=== PATIENT | male | born 1935 | race Caucasian/White ===

== ENCOUNTER → 2017-09-11 | Outpatient (CLI) | payer OTHER ==
[~2017-09-11] MED LIST: DUTA0.5C PO; MULTTAB58 PO; SILODOSIN PO
[2017-09-11 12:51] LABS: BLOOD UREA NITROGEN 19 mg/dl (7-18); BUN/CREATININE RATIO 20.9 (10-20); CARBON DIOXIDE 28 mmol/L (21-32); CHLORIDE 105 mmol/L (98-107); CREATININE 0.92 mg/dl (0.60-1.40); GLUCOSE 133 mg/dl (70-99); POTASSIUM 4.8 mmol/L (3.5-5.1); SODIUM 138 mmol/L (136-145)
== END | disposition home or self-care (01) ==
LOC: C.LABPVFM 08:47
PROVIDERS: ATTEND Nurse Practitioner Family
DX: Z01.818 Encounter for other preprocedural examination (principal)

== ENCOUNTER 2024-04-06 11:38 | Inpatient (IN) ==
[2024-04-06] MEDS: methylPREDNISolone 125 MG/2 ML VIAL IV STA (12:10)
[2024-04-06 12:14] LABS: Hematocrit (blood only) 39.5 % (42.0-52.0); Hemoglobin 13.9 g/dl (14.0-18.0); Mean Corpuscular Hemoglobin 31.2 pg (25.0-34.0); Mean Corpuscular Hgb Conc 35.2 g/dL (32.0-36.0); Mean Corpuscular Volume 88.6 fL (80.0-100.0); Mean Platelet Volume 10.4 fL (9.4-12.4); Platelet Count 166 K/uL (130-400); RDW Coefficient of Variation 13.7 % (11.5-14.5); RDW Standard Deviation 44.5 fL (36.4-46.3); Red Blood Count 4.46 M/uL (4.70-6.10); White Blood Count 6.91 K/ul (4.8-10.8)
[2024-04-06] MEDS: LEVALBUTEROL 1.25 MG/3 ML NEB NEB STA (12:16)
[2024-04-06] MEDS: SODIUM CHLORIDE 0.9% 500 ML IV ONE ×2 (12:19→13:20)
[2024-04-06 12:33] LABS: Albumin Globulin Ratio 1.2 (0.9-2); Albumin Level 3.7 gm/dl (3.4-5.0); BUN Creatinine Ratio 22.7 (10-20); Bilirubin,Total 0.4 mg/dl (0.2-1.0); Calcium 8.7 mg/dl (8.6-10.3); Creatinine Clr Calc Pharmacy 31.8 ml/min; Est GFR (African American) 40.8 ml/min; Est GFR (Non-African American) 35.2 ml/min; Globulin 3.1 gm/dl (2.5-4.0); Magnesium 2.2 mg/dl (1.7-2.4); Potassium 4.2 mmol/L (3.5-5.1); Total Protein 6.8 gm/dl (6.0-8.3)
--- NOTE | 2024-04-06 12:34 | XRay Report ---
XR chest 1V portable CLINICAL HISTORY: Dyspnea COMPARISON STUDY: Chest radiograph January 12, 2024. Chest CT January 19, 2024. FINDINGS: No pneumothorax or pleural effusion is present. 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 No consolidation is present. Cardiomediastinal silhouette is stable. There is underlying emphyse ma. IMPRESSION: 1. No acute cardiopulmonary findings. 2. Interstitial thickening, likely chronic. 3. Emphysema. ACT 112: Negative or not required by law. Electronically signed by: Eric Velasco M.D. 04/06/2024 12:33 PM
--- NOTE | 2024-04-06 12:34 | Emergency Department Note ---
Impression & Plan Atrial fibrillation with RVR, Dyspnea on exertion, Elevated troponin, KE (acute kidney injury) ED Provider Note NAME: AV GALVEZ AGE: 88 SEX: M : 1935 ARRIVES VIA: Ambulance INFORMANT: Patient, ED PROVIDER(S): Yann Macias MD CHIEF COMPLAINT: Shortness of breath, A-fib with RVR MEDICAL DECISION MAKING: Patient presents due to concern for shortness of breath and was noted to be in A-fib with RVR. IV was established and blood work was obtained. Patient was ordered methylprednisolone as well as a Xopenex treatment. Bedside ultrasound was performed which I believe showed small pericardial effusion no evidence of tamponade good EF and IVC showed respiratory variability that the patient would benefit from IV fluids. Patient did have a diltiazem drip ordered initially withheld any bolus. Patient did receive 500 of IV fluids and has had some mild improvement in his tachycardia. Do believe the patient would benefit from further rate control as the patient has a normal white count H&H and platelet count and there is no evidence of left shift. The patient was ordered additional Cardizem bolus of 10 mg. Patient was ordered IV heparin. Patient's hemoglobin is virtually normal at 13.9. The patient's kidney function with a creatinine 1.72 which is a change from prior but may be due to patient's A-fib with RVR and likely diastolic dysfunction. Initial troponin of 244. BNP is elevated at 664. TSH is low but free T4 is normal. The patient's bio fire is negative. Patient did have improvement in tachycardia as well as blood pressure. I did speak with the on-call hospitalist service Tomás Velasco PA-C and Dr. Marino. Critical Care: I have personally spent 55 minutes of critical care time in direct management of this patient. This includes bedside care, interpretation of diagnostic studies, and testing, discussion with consultants, patient, and family members, and other require inpatient management activities. This 55 minutes is in excess of all separately billable procedures. Procedures: Limited Point of Care Cardiac Ultrasound performed by me: Indication: A-fib with RVR Findings: Limited echocardiography revealed pericardial effusion without evidence of tamponade. Endpoint septal separation was normal no evidence of obvious heart failure. HR 130s and irregular. Additional findings: IVC with respiratory variability no evidence of plethora. Impression: A-fib RVR with preserved EF Discussion w/ other healthcare providers: Tomás Velasco PA-C and Dr. Marino inpatient medicine service Prior /Outside records reviewed: None Differential diagnosis: Reactive airway disease, pneumonia, pneumothorax, COPD, CHF, ACS, pulmonary embolism, musculoskeletal, GERD as well as other pathologies were considered. Diagnostics, as interpreted by me: ECG: A-fib with RVR, rate 147, left axis deviation, wide QRS, right bundle branch block pattern. A-fib is new from comparison April 14, 2013. A-fib has replaced sinus rhythm. Cardiac monitoring: An order was placed for continuous cardiac monitoring. The monitor shows a rate of 135 with irregularly irregular and tachycardic rhythm. Patient was placed on pulse oximetry Medical decision rules: None Imaging studies: I informally interpreted the patient's chest x-ray does not show evidence of obvious pneumonia or pneumothorax with formal report to follow. HPI: Patient presents from clinic due to concern for increasing shortness of breath new onset A-fib and hypoxia. Patient states that his symptoms began on Thursday. The patient has felt a bit more weak but states that his shortness of breath has been ongoing and gotten progressively worse it is fairly constant. Patient denies any chest pains. No falls or trauma. Patient denies any fevers or chills. Former smoker states that he has no known history of COPD. Patient reportedly was in clinic today for an appointment for his initial complaints was noted to be in A-fib and hypoxic to 89%. The patient was placed on supplemental nasal cannula oxygen. I did receive the medical command call and decision was made to give the patient IV Cardizem 15 mg as the patient was reportedly afebrile with a stable blood pressure. Patient denies any cough or fever no abdominal pain. Patient denies any leg swelling PAST MEDICAL HISTORY: See Below PAST SURGICAL HISTORY: See Below SOCIAL HISTORY: See Below HOME MEDICATIONS: See Below ALLERGIES: See Below VITALS: See Below PHYSICAL EXAMINATION: GENERAL: NAD, non-toxic. Wearing glasses. EYE EXAM: Normal conjunctiva. PERRL, no anisocoria and EOM's grossly intact w/o pain. OROPHARYNX: Moist mucus membranes, grossly normal dentition. NECK: Trachea midline, no stridor. LUNGS: Scant wheezes noted without rhonchi or crackles. Normal chest wall mechanics. HEART: Tachycardic and irregular irregular, no MRG. ABDOMEN: Abdomen soft, non-tender, no masses, no rebound or guarding. BACK: No CVA TTP. SKIN: No rashes and no bruising. UPPER EXTREMITIES: Upper extremities are grossly normal. LOWER EXTREMITIES: Grossly normal, no edema or erythema. NEURO EXAM: A&O x3, cranial nerves II-XII grossly intact, normal speech, moves all 4 extremities. Past Med/Surg History Problem List (Updated 04/06/24 @ 17:43 by Yann Macias MD) KE (acute kidney injury) (Acute) Elevated troponin (Acute) Generalized weakness Falls Atrial fibrillation with RVR (Acute) Fatigue Dyspnea on exertion (Acute) Benign prostatic hyperplasia (BPH) with straining on urination Gross hematuria Elevated blood pressure reading without diagnosis of hypertension Eczema (Acute) Surgical History H/O prostatectomy H/O hand surgery History of hip replacement Family History Grandfather Myocardial infarction Denies family history of Ovarian cancer Prostate cancer Diabetes Breast cancer Colorectal cancer Hypertension Social History Smoking Status: Former smoker Tobacco Type: Cigars Cigarettes Per Day: smoked 20-30 years; Second Hand Exposure: No; Do You Dip or Chew Tobacco: No; Hx Alcohol Use: No Hx Substance Use: No Preferred Language: Albanian Communication Ability: Effective Hearing Ability: Normal Installation Manager Required: No marital status: Current Living Situation: Spouse 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 How many Children do You have: 3 Feels Safe at Home: Yes Childhood Exposure to Second-Hand Smoke: Yes Diet: regular caffeine: Yes (coffee) Dental Care, Regularly: No Physical Activity Frequency: Daily Seatbelt Use: sometimes Sunscreen Use: No Allergies Allergies Allergy/AdvReac Type Severity Reaction Status Date / Time latex Allergy Intermediate BLISTERS Verified 04/06/24 10:49 Home Meds Home Medications Medication Instructions Recorded Confirmed multivitamin 1 tab PO HS 09/28/20 04/06/24 dutasteride 0.5 mg capsule 0.5 mg PO HS 04/06/24 04/06/24 Results & Data (ED) Vital Signs Vital Signs - 24 hr 04/06/24 11:46 04/06/24 11:46 04/06/24 12:28 Temperature 37.8 C H Temperature Source Oral Pulse Rate 124 H 128 H Pulse Rate [Left Apical] Respiratory Rate 30 H Respiratory Effort / Characteristics Spontaneous Short of Breath Respiratory Depth Normal Respiratory Pattern Regular Blood Pressure 112/73 Blood Pressure [Right Arm] Blood Pressure Mean 86 Blood Pressure Mean [Right Arm] Pulse Oximetry 94 94 Oxygen Delivery Method Room Air Room Air Oxygen Flow Rate 0 Sepsis Recent Fever Within 48 Hours Yes Sepsis New/Unexplained Change in Mental Status N/A Sepsis Action Taken by Nursing Physician Notified 04/06/24 12:30 04/06/24 13:03 04/06/24 13:19 Temperature Temperature Source Pulse Rate 127 H 150 H Pulse Rate [Left Apical] 139 H Respiratory Rate 25 H 26 H Respiratory Effort / Characteristics Respiratory Depth Respiratory Pattern Blood Pressure 109/84 96/67 L Blood Pressure [Right Arm] 115/83 Blood Pressure Mean 92 76 Blood Pressure Mean [Right Arm] 93 Pulse Oximetry 99 94 Oxygen Delivery Method Room Air Room Air Oxygen Flow Rate Sepsis Recent Fever Within 48 Hours Sepsis New/Unexplained Change in Mental Status Sepsis Action Taken by Nursing 04/06/24 13:45 04/06/24 14:00 04/06/24 14:09 Temperature Temperature Source Pulse Rate 135 H 115 H Pulse Rate [Left Apical] Respiratory Rate 23 26 H Respiratory Effort / Characteristics Respiratory Depth Respiratory Pattern Blood Pressure 112/69 Blood Pressure [Right Arm] Blood Pressure Mean 88 Blood Pressure Mean [Right Arm] Pulse Oximetry 95 94 Oxygen Delivery Method Room Air Room Air Oxygen Flow Rate Sepsis Recent Fever Within 48 Hours Sepsis New/Unexplained Change in Mental Status Sepsis Action Taken by Nursing 04/06/24 14:30 Temperature Temperature Source Pulse Rate Pulse Rate [Left Apical] Respiratory Rate Respiratory Effort / Characteristics Respiratory Depth Respiratory Pattern Blood Pressure Blood Pressure [Right Arm] 115/79 Blood Pressure Mean Blood Pressure Mean [Right Arm] 91 Pulse Oximetry Oxygen Delivery Method Oxygen Flow Rate Sepsis Recent Fever Within 48 Hours Sepsis New/Unexplained Change in Mental Status Sepsis Action Taken by Snf Medications Current Medication List: was personally reviewed by me Laboratory Data Attestation: I reviewed the patient's lab results. 04/06/24 11:48 04/06/24 11:48 Lab Results 04/06/24 04/06/24 Range/Units 11:48 11:58 WBC 6.91 (4.8-10.8) K/ul RBC 4.46 L (4.70-6.10) M/uL Hgb 13.9 L (14.0-18.0) g/dl Hct 39.5 L (42.0-52.0) % MCV 88.6 (80.0-100.0) fL MCH 31.2 (25.0-34.0) pg MCHC 35.2 (32.0-36.0) g/dL RDW Std Deviation 44.5 (36.4-46.3) fL RDW Coeff of Luis 13.7 (11.5-14.5) % Plt Count 166 (130-400) K/uL MPV 10.4 (9.4-12.4) fL Immature Gran % (Auto) 0.4 % Neut % (Auto) 79.2 % Lymph % (Auto) 15.9 % [place] % (Auto) 3.9 % Eos % (Auto) 0.3 % Baso % (Auto) 0.3 % Neut # (Auto) 5.47 (1.40-6.50) K/uL Lymph # (Auto) 1.10 L (1.20-3.40) K/uL [place] # (Auto) 0.27 (0.11-0.59) K/uL Eos # (Auto) 0.02 (0.00-0.50) K/uL Baso # (Auto) 0.02 (0.00-0.20) K/uL Immature Gran # (Auto) 0.03 (0.01-0.20) K/uL RBC Morphology Unremarkable PT 11.0 (9.0-12.0) Seconds INR 1.0 (0.9-1.1) APTT 28 (21-31) Seconds PTT Ratio 1.0 Sodium 135 L (136-145) mmol/L Potassium 4.2 (3.5-5.1) mmol/L Chloride 105 (98-107) mmol/L Carbon Dioxide 21 (21-32) mmol/L Anion Gap 9 (3-11) BUN 39 H (6-23) mg/dl Creatinine 1.72 H (0.6-1.4) mg/dl Est Cr Clr Drug Dosing 31.8 ml/min Est GFR ( Amer) 40.8 ml/min Est GFR (Non-Af Amer) 35.2 ml/min BUN/Creatinine Ratio 22.7 H (10-20) Glucose 201 H (70-99(Fasting)) mg/dl Lactate 1.9 (0.4-2.0) mmol/L Calcium 8.7 (8.6-10.3) mg/dl Magnesium 2.2 (1.7-2.4) mg/dl Total Bilirubin 0.4 (0.2-1.0) mg/dl AST 56 H (13-39) U/L ALT 47 (7-52) U/L Alkaline Phosphatase 82 (34-104) U/L Troponin I High Sens 244.7 H* (0-20) pg/ml B-Natriuretic Peptide 664 H (0-100) pg/ml Total Protein 6.8 (6.0-8.3) gm/dl Albumin 3.7 (3.4-5.0) gm/dl Globulin 3.1 (2.5-4.0) gm/dl Albumin/Globulin Ratio 1.2 (0.9-2) Adenovirus (PCR) Not Detected (NotDetected) Anaplasma Smear See Comment Babesia Smear See Comment B. pertussis DNA (PCR) Not Detected (NotDetected) B.parapertussis DNA PCR Not Detected (NotDetected) C. pneumoniae DNA (PCR) Not Detected (NotDetected) Coronavirus OC43 (PCR) Not Detected (NotDetected) Coronavirus HKU1 (PCR) Not Detected (NotDetected) Coronavirus 229E (PCR) Not Detected (NotDetected) SARS-CoV-2 (PCR) Not Detected (NotDetected) Coronavirus NL63 (PCR) Not Detected (NotDetected) Human Metapneumovir PCR Not Detected (NotDetected) Influenza Type A (PCR) Not Detected (NotDetected) Influenza Type B (PCR) Not Detected (NotDetected) M. pneumoniae (PCR) Not Detected (NotDetected) Parainfluenza 1 (PCR) Not Detected (NotDetected) Parainfluenza 2 (PCR) Not Detected (NotDetected) Parainfluenza 3 (PCR) Not Detected (NotDetected) Parainfluenza 4 (PCR) Not Detected (NotDetected) RSV (PCR) Not Detected (NotDetected) Entero/Rhino (PCR) Not Detected (NotDetected) Administered Medications Diltiazem HCl 125 mg/ Dextrose 125 mls @ 10 mls/hr IV .[id number] JULIAN; Protocol Stop: 05/06/24 12:29 Last Titration: 04/06/24 15:17 Dose: 10 mg/hr, 10 mls/hr Documented By: CELINE Co-signed By: MARCUS Titration: 04/06/24 13:40 Dose: 5 mg/hr, 5 mls/hr Documented By: CELINE Co-signed By: TIM Admin: 04/06/24 12:37 Dose: 5 mg/hr, 5 mls/hr Documented By: CELINE Co-signed By: TIM Heparin Sodium/Dextrose (Heparin Sodium/Dextrose) 25,000 units in 500 mls @ 19 mls/hr IV .Q24H [facility]; Protocol Stop: 05/06/24 12:59 Last Titration: 04/06/24 13:54 Dose: 950 units/hr, 19 mls/hr Documented By: CELINE Co-signed By: TIM Titration: 04/06/24 13:28 Dose: 0 units/hr, 0 mls/hr Documented By: CELINE Co-signed By: TIM Admin: 04/06/24 13:24 Dose: 950 units/hr, 19 mls/hr Documented By: CELINE Co-signed By: TIM Lactated Ringer's (Lr) 1,000 mls @ 80 mls/hr IV .[id number] [facility] Stop: 04/07/24 03:29 Last Admin: 04/06/24 15:11 Dose: 80 mls/hr Documented By: CELINE Discontinued Medications Diltiazem HCl (Diltiazem Hcl 5 Mg/Ml 5 Ml Vial) 15 mg IV NOW STA Stop: 04/06/24 13:04 Last Admin: 04/06/24 15:11 Dose: Not Given Documented By: CELINE Diltiazem HCl (Diltiazem Hcl 5 Mg/Ml 5 Ml Vial) 10 mg IV NOW STA Stop: 04/06/24 13:07 Last Admin: 04/06/24 13:24 Dose: 10 mg Documented By: CELINE Co-signed By: TIM Heparin Sodium/Dextrose (Heparin Iv Adult Wt-Based Low-Dose *No* Initial Bolus Protocol) 1 each IV ONE STA; Protocol Stop: 04/06/24 12:35 Last Admin: 04/06/24 14:32 Dose: Not Given Documented By: CELINE Sodium Chloride (Nss) 500 mls @ 999 mls/hr IV .Q31M ONE Stop: 04/06/24 12:49 Last Infusion: 04/06/24 12:39 Dose: Infused Documented By: Admin: 04/06/24 12:19 Dose: 999 mls/hr Documented By: CELINE Sodium Chloride (Nss) 500 mls @ 999 mls/hr IV .Q31M ONE Stop: 04/06/24 13:44 Last Infusion: 04/06/24 13:50 Dose: Infused Documented By: Admin: 04/06/24 13:20 Dose: 999 mls/hr Documented By: RENÉ Levalbuterol HCl (Levalbuterol 1.25 Mg/3 Ml Neb) 1.25 mg NEB NOW STA Stop: 04/06/24 12:07 Last Admin: 04/06/24 12:16 Dose: 1.25 mg Documented By: CELINE Methylprednisolone (Methylprednisolone 125 Mg/2 Ml Vial) 125 mg IV NOW STA Stop: 04/06/24 12:07 Last Admin: 04/06/24 12:10 Dose: 125 mg Documented By: RENÉ Miscellaneous (Stat Iv Infusion Titration Per Protocol) 1 each N/A NOW STA Stop: 04/06/24 12:20 Last Admin: 04/06/24 12:39 Dose: Not Given Documented By: CELINE Imaging Data Radiologist's Impression: Chest X-Ray 04/06/24 11:56 XR chest 1V portable CLINICAL HISTORY: Dyspnea COMPARISON STUDY: Chest radiograph January 12, 2024. Chest CT January 19, 2024. FINDINGS: No pneumothorax or pleural effusion is present. Mild interstitial thickening is likely chronic. No consolidation is present. Cardiomediastinal silhouette is stable. There is underlying emphysema. IMPRESSION: 1. No acute cardiopulmonary findings. 2. Interstitial thickening, likely chronic. 3. Emphysema. ACT 112: Negative or not required by law. Electronically signed by: Eric Velasco M.D. 04/06/2024 12:33 PM Discharge Plan Visit Data Chief Complaint: Shortness of Breath/Dyspnea Stated Complaint: SOB ED Provider: Yann Macias Discharge Problem: Atrial fibrillation with RVR, Dyspnea on exertion, Elevated troponin, KE (acute kidney injury) Patient Disposition: Admitted As Inpatient Discharge Instructions Interventions: ED Discharge Assessment Last Done: 04/06/24 17:41
[2024-04-06] MEDS: dilTIAZem HCL 125 MG in DEXTROSE 5% 100 ML IV SCH (12:37)
[2024-04-06] MEDS: STAT IV Infusion **Titration per Protocol STA (12:39)
[2024-04-06 12:44] LABS: Troponin I High Sensitivity 244.7 pg/ml (0-20)
[2024-04-06 12:47] LABS: Basophils # (auto) 0.02 K/uL (0.00-0.20); Basophils % (auto) 0.3 %; Eosinophils # (auto) 0.02 K/uL (0.00-0.50); Eosinophils % (auto) 0.3 %; Immature Granulocytes # (auto) 0.03 K/uL (0.01-0.20); Immature Granulocytes % (auto) 0.4 %; Lymphocytes % (auto) 15.9 %; Monocytes # (auto) 0.27 K/uL (0.11-0.59); Monocytes % (auto) 3.9 %; Neutrophils # (auto) 5.47 K/uL (1.40-6.50); Neutrophils % (auto) 79.2 %; RBC Morphology Unremarkable
[2024-04-06 13:06] LABS: Adenovirus PCR Not Detected (NotDetected); Bordetella parapertussis PCR Not Detected (NotDetected); Bordetella pertussis PCR Not Detected (NotDetected); Chlamydia pneumoniae PCR Not Detected (NotDetected); Coronavirus 229E PCR Not Detected (NotDetected); Coronavirus CoV-2 (COVID19)PCR Not Detected (NotDetected); Coronavirus HKU1 PCR Not Detected (NotDetected); Coronavirus NL63 PCR Not Detected (NotDetected); Coronavirus OC43PCR Not Detected (NotDetected); Human Metapneumovirus PCR Not Detected (NotDetected); Influenza A PCR Not Detected (NotDetected); Influenza B PCR Not Detected (NotDetected); Mycoplasma pneumoniae PCR Not Detected (NotDetected); Parainfluenza Virus 1 PCR Not Detected (NotDetected); Parainfluenza Virus 2 PCR Not Detected (NotDetected); Parainfluenza Virus 3 PCR Not Detected (NotDetected); Parainfluenza Virus 4 PCR Not Detected (NotDetected); Respiratory Syncytial VirusPCR Not Detected (NotDetected); Rhinovirus/Enterovirus PCR Not Detected (NotDetected)
[2024-04-06] MEDS: dilTIAZem HCl 5 MG/ML 5 ML VIAL IV STA ×2 (13:24→15:11)
[2024-04-06] MEDS: HEPARIN SODIUM/DEXTROSE 25,000 UNITS/500 ML BAG IV SCH (13:24)
[2024-04-06 13:50] LABS: Partial Thromboplastin Time 28 Seconds (21-31)
--- NOTE | 2024-04-06 14:10 | History & Physical Report ---
Date of Service April 06, 2024 Assessment & Plan (1) Atrial fibrillation with RVR: Plan: Admit to the PCU on telemetry Currently with heart rate in the 110s to 120s, but has been hemodynamically stable and now stable on room air Currently on diltiazem drip running at 5 mg/h Was sent to the ER from his PCPs office earlier today after he was found to be in new onset atrial fibrillation with heart rates in the low 200s At this time the exact etiology of his atrial fibrillation is unknown, electrolytes have been stable, he is not volume overloaded to suggest going into CHF exacerbation prior to A-fib, he examines as dehydrated and is also noted to have an KE so high suspicion that dehydration is playing a role Patient was initially hypoxic at his PCPs office and mildly hypotension on arrival to the ED > Patient now stable on room air and hemodynamically stable with better rate control and initial IV fluid resuscitation, low suspicion for PE at this time as he is without signs of DVT in the bilateral lower extremities and denies pleuritic chest pain. Suspect his hypoxia was due to increased heart rate Temperature on arrival was 37.8 C, he is without leukocytosis, chest x-ray is negative for pneumonia, no signs of skin infection, patient has denied GI symptoms and urinary symptoms Will continue infectious workup with UA and reflex culture if needed, Pro-Willard, and tickborne panel as his lymphocyte count is decreased Will also add on a TSH with reflex free T4 if needed for normal A-fib workup Patient received a total of 1 L normal saline in the ED, still appears dehydrated, will order LR to run at 80 mL/h x 1 bag for now as he is without signs of volume overload Patient does not have a history of major bleeding, is in agreement with heparin drip at this time, will need to be transition to oral anticoagulation prior to discharge Will continue diltiazem drip for now and consult cardiology Will obtain echocardiogram on admission Heparin drip for DVT prophylaxis Heart healthy diet with 2 g sodium restriction AM CBC, CMP, mag, PT/INR (2) Falls: Plan: Patient has had 4 falls from standing over the past 48 hours Patient explains that his bilateral lower extremities have been symmetrically weak and have been giving out on him when he is trying to ambulate Patient denies new neurologic symptoms, did not hit his head or lose conscious ness with any of the falls No focal neurologic exam findings Suspect his weakness is due to dehydration and possibly also related to his A- fib RVR since he cannot feel himself in A-fib RVR at this time, not sure how long he has been in it Will continue supportive care and infectious workup Fall precautions/PT/OT consults (3) Elevated troponin: Plan: Initial high-sensitivity troponin is elevated at 244, patient denies chest pain No acute ST segment or T wave changes on EKG Suspect this is due to demand from A-fib RVR and dehydration 2-hour high-sensitivity troponin is in process we will continue to trend overnight Continue to monitor on telemetry, will obtain echocardiogram for further assessment (4) KE (acute kidney injury): Plan: Creatinine is elevated today at 1.76, baseline is near 1.0 Patient appears dehydrated on exam, KE is likely prerenal however, we will obtain bladder scan and renal ultrasound to monitor for obstruction Bladder scan every shift, as needed straight cath orders placed for postvoid residual of 350 cc or greater Will continue with light IV hydration on admission Avoid nephrotoxic agents Monitor daily renal function and electrolytes (5) Generalized weakness: Plan: See falls Plan The patient was discussed with Dr. Marino at the time of the admission History of Present Illness Chief Complaint: SOB, tachycardia, hypoxia, multiple falls Primary Care Provider: FRANKLIN Alexandre Nabil is an 88-year-old male with a past medical history significant for BPH, gross hematuria, elevated blood pressure reading without diagnosis of hypertension, who presented to [facility] emergency department via EMS on 04/06/2024 after being found to be in new onset A-fib with RVR at his PCPs office earlier today. The patient made a PCP appointment for today due to increased generalized weakness, multiple falls recently, and shortness of breath. On arrival to his PCPs office, he was noted to be in A-fib RVR with heart rate in the low 200s, he was noted to be hypoxic with SpO2 in the mid 80s on room air, and tachypneic. The patient was given 15 mg IV Cardizem and 100 mL NSS en route by EMS. On arrival to the ER the patient was noted to be mildly hypotensive at 96/67, tachycardic with heart rate in the 150s, tachypneic at 30, with a temperature of 37.8 C. He was noted to be stable on room air while in the ER. Labs were significant for a creatinine of 1.72 (baseline is near 1.0), BUN of 39, initial high-sensitivity troponin of 244, BNP of 664, and full respiratory BioFire negative. Chest x-ray was read as no acute cardiopulmonary findings, but did note interstitial thickening which is likely chronic and emphysema. Prior to admission the patient was given 125 mg IV methylprednisolone, a lev albuterol nebulizer treatment, a total of 1 L normal saline 10 mg IV diltiazem. He was eventually started on a diltiazem drip at 5 mg/h and started on a low-dose weight-based heparin drip without bolus. Patient sitting in bed in no acute distress at the time of exam, heart rates currently in the 120s. States he started to develop dyspnea on exertion, generalized weakness in the bilateral lower extremities, and generalized weakness on 04/04/2024. States that since 04/04 he has had 4 falls while standing. He denies any prodromal symptoms such as lightheadedness, dizziness, palpitations, chest pain, headache/vision changes prior to the falls. States that his bilateral knees gave out each time he fell. Denies hitting his head or losing consciousness on any of the falls. States that he would have to call his son each time to come help him up. Made an appointment with his PCP today due to these ongoing symptoms. Denies new paresthesias, unilateral weakness in any of the extremities, new changes in vision, hearing, taste, smell. Denies recent chest pain, productive cough/hemoptysis, ABD pain, nausea/vomiting, dysuria, hematuria, melena, bloody BMs, lower extremity swelling. When asked, he states that he has not been eating well recently due to decreased appetite but has been trying to drink fluids to stay hydrated. Has an approximately 20 to 25-year smoking history, but quit smoking in his 40s to 50s. Denies recent alcohol use. Only complaint at this time is feeling generally fatigued. We discussed CODE STATUS, he wishes to be a full code and for his family to make medical decisions for him if he cannot make them himself. Please refer to Dr. Marino's attestation for any changes to the treatment plan Allergies Allergy/AdvReac Type Severity Reaction Status Date / Time latex Allergy Intermediate BLISTERS Verified 04/06/24 10:49 Home Medications Medication Instructions Recorded Confirmed Type multivitamin 1 tab PO QDD 09/28/20 04/06/24 History dutasteride 0.5 mg capsule 0.5 mg PO DAILY #90 caps 12/07/23 04/06/24 Rx Past Med/Surg History Problem List (Updated 04/06/24 @ 14:53 by Tomás Velasco PA-C) KE (acute kidney injury) Elevated troponin Generalized weakness Falls Atrial fibrillation with RVR Fatigue Dyspnea on exertion Benign prostatic hyperplasia (BPH) with straining on urination Gross hematuria Elevated blood pressure reading without diagnosis of hypertension Eczema (Acute) Medical History Eczema Surgical History H/O prostatectomy H/O hand surgery History of hip replacement Family History Grandfather Myocardial infarction Denies family history of Ovarian cancer Prostate cancer Diabetes Breast cancer Colorectal cancer Hypertension Social History Smoking Status: Former smoker Tobacco Type: Cigars Cigarettes Per Day: smoked 20-30 years; Second Hand Exposure: No; Do You Dip or Chew Tobacco: No; Hx Alcohol Use: No Hx Substance Use: No Preferred Language: [place] Communication Ability: Effective Hearing Ability: Normal 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 marital status: Current Living Situation: Spouse 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 How many Children do You have: 3 Feels Safe at Home: Yes Childhood Exposure to Second-Hand Smoke: Yes Diet: regular caffeine: Yes (coffee) Dental Care, Regularly: No Physical Activity Frequency: Daily Seatbelt Use: sometimes Sunscreen Use: No Physical Exam Physical Exam: Physical Exam: General: In no acute distress, stated age, chronically ill appearing but non- toxic HEENT: Normocephalic, atraumatic, no scleral icterus, pupils around round, symmetrical, and reactive to light, dry mucus membranes, +JVD, trachea midline, no thyromegaly Chest/Pulm: No respiratory distress, symmetrical chest expansion, clear breath sounds throughout Cardiac: irregular rate and rhythm, no murmurs noted Abdomen: Negative for ascites and bruising, normoactive bowel sounds, soft, non-tender to palpation throughout Musculoskeletal: Patient noted to have bruising and non-bleeding skin abrasions on the BL knees from recent falls, patient with intact full ROM of the BL LE's without pain, no other acute trauma noted on exam Extremities: Radial, dorsalis pedis, and posterior tibial pulses are intact and symmetrical, no edema noted in the BL LE's Skin: As described above Neuro: Alert and oriented to person, place, month, year, and president, no focal defects, CN II-XII tested and intact, negative cerebellar and pronator drift testing in the BL UE's, no tremors noted Psych: No acute distress, calm and cooperative during the exam Results & Data Results & Data Vital Signs (Past 12 Hours) Vital Signs Temp Pulse Pulse Resp BP BP Pulse Ox 04/06/24 13:19 139 H 115/83 04/06/24 13:03 150 H 26 H 96/67 L 94 04/06/24 12:30 127 H 25 H 109/84 99 04/06/24 12:28 128 H 04/06/24 11:46 94 04/06/24 11:46 37.8 C H 124 H 30 H 112/73 94 O2 Del Method O2 Flow Rate 04/06/24 13:19 04/06/24 13:03 Room Air 04/06/24 12:30 Room Air 04/06/24 12:28 04/06/24 11:46 Room Air 0 04/06/24 11:46 Room Air Laboratory Results Abnormal lab results 04/06/24 Range/Units 11:48 RBC 4.46 L (4.70-6.10) M/uL Hgb 13.9 L (14.0-18.0) g/dl Hct 39.5 L (42.0-52.0) % Lymph # (Auto) 1.10 L (1.20-3.40) K/uL Sodium 135 L (136-145) mmol/L BUN 39 H (6-23) mg/dl Creatinine 1.72 H (0.6-1.4) mg/dl BUN/Creatinine Ratio 22.7 H (10-20) Glucose 201 H (70-99(Fasting)) mg/dl AST 56 H (13-39) U/L Troponin I High Sens 244.7 H* (0-20) pg/ml B-Natriuretic Peptide 664 H (0-100) pg/ml Diagnostic Findings Chest X-Ray 04/06/24 11:56 XR chest 1V portable CLINICAL HISTORY: Dyspnea COMPARISON STUDY: Chest radiograph January 12, 2024. Chest CT January 19, 2024. FINDINGS: No pneumothorax or pleural effusion is present. Mild interstitial thickening is likely chronic. No consolidation is present. Cardiomediastinal silhouette is stable. There is underlying emphysema. IMPRESSION: 1. No acute cardiopulmonary findings. 2. Interstitial thickening, likely chronic. 3. Emphysema. ACT 112: Negative or not required by law. Electronically signed by: Eric Velasco M.D. 04/06/2024 12:33 PM ECG Additional Comments: Atrial fibrillation with rapid ventricular response Right bundle branch block Left anterior fascicular block Bifascicular block Abnormal ECG When compared with ECG of 14-APR-2013 20:04, Atrial fibrillation has replaced Sinus rhythm Vent. rate has increased BY 65 BPM (RBBB and left anterior fascicular block) is now Present Code Status & VTE Plan Code Status full code VTE Prophylaxis Plan VTE Prophylaxis will be ordered: Yes PG Care Time/CCT Total # of Minutes Spent Total Time Spent with Patient: Total time spent is greater than 50% in coordination of care (as documented) at patient's floor/unit and/or counseling patient: Coding [place] [address] INT INP/OBS CARE 3/75MIN Patient Type Established History Comprehensive Exam Comprehensive Medical Decision Making High Complexity Diagnoses Atrial fibrillation with RVR I48.91 Falls W19.XXXA Elevated troponin R79.89 KE (acute kidney injury) N17.9 Generalized weakness R53.1
[2024-04-06] MEDS: Heparin IV Adult Wt-Based Low-Dose *NO* INITIAL Bolus Protocol IV STA (14:32)
[2024-04-06] MEDS: LACTATED RINGER'S 1,000 ML IV SCH (15:11)
[2024-04-06 15:25] LABS: Troponin I High Sensitivity 236.3 pg/ml (0-20)
[2024-04-06 15:32] LABS: Thyroid Stimulating Hormone 0.203 uIu/ml (0.300-4.500)
[2024-04-06 16:07] LABS: T4 Free Thyroxine 1.04 ng/dl (0.61-1.60)
--- NOTE | 2024-04-06 16:46 | Ultrasound Report ---
RENAL ULTRASOUND CLINICAL HISTORY: Acute kidney injury. COMPARISON STUDY: CT of the abdomen and pelvis December 07, 2023 TECHNIQUE: Sonography of the kidneys and the urinary bladder was performed. FINDINGS: The right kidney measures 12.3 x 3.6 x 4.6 cm and the left kidney measures 10.7 x 5.5 x 5 c m. There is no hydronephrosis. No renal calculi are identified. A 3.1 cm anechoic left renal lesion r epresents a cyst. No solid renal lesion is identified. The prostate is significantly enlarged. Bladde r wall is thickened and irregular. Multiple bladder diverticula are present. The bladder wall is trab eculated. IMPRESSION: 1. No hydronephrosis. 2. Enlarged prostate. Thickened, irregular bladder wall, as shown on CT of December 07, 2023. ACT 112: Negative or not required by law. Electronically signed by: Eric Velasco M.D. 04/06/2024 4:45 PM
--- NOTE | 2024-04-06 17:43 | Electrocardiogram Report ---
Test Reason : Blood Pressure : / mmHG Vent. Rate : 147 BPM Atrial Rate : 000 BPM P-R Int : 000 ms QRS Dur : 126 ms QT Int : 340 ms P-R-T Axes : 000 -78 063 degrees QTc Int : 532 ms Atrial fibrillation with rapid ventricular response Right bundle branch block Left anterior fascicular block Bifascicular block Abnormal ECG When compared with ECG of 14-APR-2013 20:04, Atrial fibrillation has replaced Sinus rhythm Vent. rate has increased BY 65 BPM (RBBB and left anterior fascicular block) is now Present Confirmed by Jamshid Moe ([id number]) on 04/06/2024 5:42:32 PM Referred By: Confirmed By:Alli Moe
[2024-04-06 18:33] LABS: Appearance Urine Cloudy (Clear); Bacteria Urine Automated 2+ (None Seen); Bilirubin Urine Negative (Negative); Blood Urine 2+ (Negative); Color Urine Dark Yellow; Epithelial Cell Urine Auto 0-2 /hpf (0-2); Glucose Urine UA Negative (Negative); Ketones Urine 1+ (Negative); Leukocyte Esterase Urine 3+ (Negative); Nitrite Urine Positive (Negative); Protein Urine 2+ (Negative); RBC Urine Automated 0-2 /hpf (0-2); Specific Gravity Urine 1.025 (1.000-1.030); Urobilinogen Urine Negative (Negative); WBC Urine Automated >50 /hpf (0-5)
[2024-04-06 18:34] LABS: Cast Urine Automated 0-2 /lpf (0-2)
[2024-04-06] MEDS: cefTRIAXone SODIUM 2,000 MG/50 ML BAG IV SCH (19:05)
[2024-04-06 21:46] LABS: ANTI-Xa, UFH(UnfractionatedHep 0.23 IU/ml (0.3-0.7)
[2024-04-06] MEDS: FINASTERIDE 5 MG TAB PO SCH (22:18)
[2024-04-07 05:24] LABS: ANTI-Xa, UFH(UnfractionatedHep 0.38 IU/ml (0.3-0.7)
--- NOTE | 2024-04-07 11:52 | Hospitalist Progress Note ---
Date of Service April 07, 2024 Assessment & Plan (1) Atrial fibrillation with RVR: Plan: Admit to the PCU on telemetry Currently with heart rate in the 110s to 120s, but has been hemodynamically stable and now stable on room air Currently on diltiazem drip running at 5 mg/h Was sent to the ER from his PCPs office earlier today after he was found to be in new onset atrial fibrillation with heart rates in the low 200s At this time the exact etiology of his atrial fibrillation is unknown, electrolytes have been stable, he is not volume overloaded to suggest going into CHF exacerbation prior to A-fib, he examines as dehydrated and is also noted to have an KE so high suspicion that dehydration is playing a role Patient was initially hypoxic at his PCPs office and mildly hypotension on arrival to the ED > Patient now stable on room air and hemodynamically stable with better rate control and initial IV fluid resuscitation, low suspicion for PE at this time as he is without signs of DVT in the bilateral lower extremities and denies pleuritic chest pain. Suspect his hypoxia was due to increased heart rate Temperature on arrival was 37.8 C, he is without leukocytosis, chest x-ray is negative for pneumonia, no signs of skin infection, patient has denied GI symptoms and urinary symptoms Will continue infectious workup with UA and reflex culture if needed, Pro-Willard, and tickborne panel as his lymphocyte count is decreased Will also add on a TSH with reflex free T4 if needed for normal A-fib workup Patient received a total of 1 L normal saline in the ED, still appears dehydrated, will order LR to run at 80 mL/h x 1 bag for now as he is without signs of volume overload Patient does not have a history of major bleeding, is in agreement with heparin drip at this time, will need to be transition to oral anticoagulation prior to discharge Will continue diltiazem drip for now and consult cardiology Will obtain echocardiogram on admission Heparin drip for DVT prophylaxis Heart healthy diet with 2 g sodium restriction AM CBC, CMP, mag, PT/INR cardiology consult (2) Falls: Plan: Patient has had 4 falls from standing over the past 48 hours Patient explains that his bilateral lower extremities have been symmetrically weak and have been giving out on him when he is trying to ambulate Patient denies new neurologic symptoms, did not hit his head or lose consciousness with any of the falls No focal neurologic exam findings Suspect his weakness is due to dehydration and possibly also related to his A- fib RVR since he cannot feel himself in A-fib RVR at this time, not sure how long he has been in it Will continue supportive care and infectious workup Fall precautions/PT/OT consults (3) Elevated troponin: Plan: Initial high-sensitivity troponin is elevated at 244, patient denies chest pain No acute ST segment or T wave changes on EKG Suspect this is due to demand from A-fib RVR and dehydration 2-hour high-sensitivity troponin is in process we will continue to trend overnight Continue to monitor on telemetry, will obtain echocardiogram for further a ssessment (4) KE (acute kidney injury): Plan: Creatinine is elevated today at 1.76, baseline is near 1.0 Patient appears dehydrated on exam, KE is likely prerenal however, we will obtain bladder scan and renal ultrasound to monitor for obstruction Bladder scan every shift, as needed straight cath orders placed for postvoid residual of 350 cc or greater Will continue with light IV hydration on admission Avoid nephrotoxic agents Monitor daily renal function and electrolytes (5) Generalized weakness: Plan: See falls (6) UTI (urinary tract infection): Plan: IV Rocephin, follow up on urine culture Plan The patient was discussed with Dr. Marino at the time of the admission Admission and Anticipated Discharge Date Admission Date: April 06, 2024 Subjective reports weakness , denies CP, SOB Review of Systems Review of Systems: All systems reviewed & are unremarkable except as noted in Subjective Physical Exam Physical Exam: head atraumatic neck supple chest CTA b/l heart irregularly irregular abdomen soft nontender nondistended, bowel sounds Extremities no clubbing no cyanosis, pulses diminished neuro alert awake oriented x 3, no focal deficit Results & Data Results & Data Vital Signs (Past 12 Hours) Vital Signs Temp Pulse Pulse Resp BP Pulse Ox O2 Del Method 04/07/24 11:16 36.3 C L 92 H 18 123/74 92 Room Air 04/07/24 08:59 87 04/07/24 07:58 36.6 C 88 20 122/68 92 Room Air 04/07/24 03:01 36.3 C L 78 18 118/84 92 Room Air Laboratory Results Abnormal lab results 04/06/24 04/06/24 04/06/24 Range/Units 11:48 14:42 17:50 RBC 4.46 L (4.70-6.10) M/uL Hgb 13.9 L (14.0-18.0) g/dl Hct 39.5 L (42.0-52.0) % Lymph # (Auto) 1.10 L (1.20-3.40) K/uL Heparin Anti-Xa, Unfract (0.3-0.7) IU/ml Sodium 135 L (136-145) mmol/L BUN 39 H (6-23) mg/dl Creatinine 1.72 H (0.6-1.4) mg/dl BUN/Creatinine Ratio 22.7 H (10-20) Glucose 201 H (70-99(Fasting)) mg/dl AST 56 H (13-39) U/L Troponin I High Sens 244.7 H* 236.3 H* (0-20) pg/ml B-Natriuretic Peptide 664 H (0-100) pg/ml TSH 0.203 L (0.300-4.500) uIu/ml Urine Appearance Cloudy A (Clear) Urine Protein 2+ H (Negative) Urine Ketones 1+ H (Negative) Urine Blood 2+ H (Negative) Urine Nitrite Positive A (Negative) Ur Leukocyte Esterase 3+ H (Negative) Urine WBC (Auto) >50 H (0-5) /hpf Urine Bacteria (Auto) 2+ H (None Seen) 04/06/24 04/07/24 04/07/24 Range/Units 21:03 04:21 09:12 RBC (4.70-6.10) M/uL Hgb (14.0-18.0) g/dl Hct (42.0-52.0) % Lymph # (Auto) (1.20-3.40) K/uL Heparin Anti-Xa, Unfract 0.23 L (0.3-0.7) IU/ml Sodium (136-145) mmol/L BUN (6-23) mg/dl Creatinine (0.6-1.4) mg/dl BUN/Creatinine Ratio (10-20) Glucose (70-99(Fasting)) mg/dl AST (13-39) U/L Troponin I High Sens 160.5 H* D 125.3 H* D 102.0 H* (0-20) pg/ml B-Natriuretic Peptide (0-100) pg/ml TSH (0.300-4.500) uIu/ml Urine Appearance (Clear) Urine Protein (Negative) Urine Ketones (Negative) Urine Blood (Negative) Urine Nitrite (Negative) Ur Leukocyte Esterase (Negative) Urine WBC (Auto) (0-5) /hpf Urine Bacteria (Auto) (None Seen) PG Care Time/CCT Total # of Minutes Spent Total Time Spent with Patient: Total time spent is greater than 50% in coordination of care (as documented) at patient's floor/unit and/or counseling patient: Coding Level of Care Code 01883 SUB INP/OBS CARE 2/35MIN Diagnoses Atrial fibrillation with RVR I48.91 Falls W19.XXXA Elevated troponin R79.89 KE (acute kidney injury) N17.9 Generalized weakness R53.1 UTI (urinary tract infection) N39.0
--- NOTE | 2024-04-07 13:12 | XCELERA ---
[id number]
--- NOTE | 2024-04-07 15:23 | Cardiology Consultation ---
Date of Consultation April 07, 2024 Assessment & Plan (1) Elevated troponin: (2) Atrial fibrillation with RVR: (3) Dyspnea on exertion: Plan 1. Atrial fibrillation: Unknown duration. Patient has not been aware of any palpitations. He has no devices at home which monitor his heart rate. It is very possible that some of his recent symptoms of dyspnea on exertion were related to atrial fibrillation, the associated high rates or possibly an element of diastolic dysfunction and pulmonary congestion. He seems to be doing fairly well on a diltiazem infusion. We could start oral diltiazem for rate control. Can transition him to an oral anticoagulant such as apixaban. Given his current degree of renal function apixaban 2.5 mg twice daily be recommended. At some point we can entertain a cardioversion. However, he will need to be anticoagulated for several weeks before hand. 2. Elevated troponin: No current symptoms suggestive of coronary insufficiency or angina. It is very possible this is related to demand ischemia. We think we will achieve rate control and try some diuresis see if this improves his dyspnea before parking on an ischemic evaluation. 3. Dyspnea on exertion: Most likely related to his atrial fibrillation and pulmonary vascular congestion. He does have some mildly elevated biomarkers suggesting an element of coronary disease. In the absence of notable improvement and for persistent symptoms we could perform perfusion imaging. History of Present Illness Reason for Consultation: Atrial fibrillation Requesting Physician: Krista Attending Physician: Michelle Fonseca MD History of Present Illness The patient is an 88-year-old gentleman without a known history of cardiac disease who presented to his primary care physician yesterday for evaluation of falling. Patient states that several times over the past week he has fallen to the ground due to my knees giving out. These appear to happen without warning. The episodes themselves do not involve dizziness or lightheadedness. There was no loss of consciousness or postural tone. The patient does have difficulty getting off the ground afterwards. No notable injuries. Was evaluated yesterday he was noted to have an elevated heart rate and atrial fibrillation. He was sent to the emergency room for evaluation. In the emergency room he was started on diltiazem infusion. Heparin was also initiated. The patient has been unaware of any palpitations or high heart rates. He does have an element of dyspnea which is difficult for him to characterize. It seems he has been more short of breath recently. No dyspnea at rest. He does have some difficulty with ambulation due to orthopedic disease. He generally uses a cane outside and a walker inside. Again, no symptoms of palpitations. He denies any chest pain weather with exertion or rest. No orthopnea. No lower extremity edema. Allergies Allergy/AdvReac Type Severity Reaction Status Date / Time latex Allergy Intermediate BLISTERS Verified 04/06/24 10:49 Home Medications Medication Instructions Recorded Confirmed Type multivitamin 1 tab PO HS 09/28/20 04/06/24 History dutasteride 0.5 mg capsule 0.5 mg PO HS 04/06/24 04/06/24 History Patient History Surgical History H/O prostatectomy H/O hand surgery History of hip replacement Family History Grandfather Myocardial infarction Denies family history of Ovarian cancer Prostate cancer Diabetes Breast cancer Colorectal cancer Hypertension Social History Smoking Status: Former smoker Tobacco Type: Cigars Cigarettes Per Day: smoked 20-30 years; Second Hand Exposure: No; Do You Dip or Chew Tobacco: No; Hx Alcohol Use: No Hx Substance Use: No Preferred Language: Kazakh Communication Ability: Effective Hearing Ability: Normal Sole Layer Hand Required: No Beliefs That Will Affect Care: None marital status: Current Living Situation: Spouse 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 Mood and affect appeared normal. He answered all questions appropriately. HEENT: Pupils are equal and reactive to light and accommodation. Extraocular movements are intact. The sclerae are anicteric. Neuro: Cranial nerves intact Lungs: Clear to auscultation bilaterally. He has good air movement without use of accessory muscles. No rales wheezes or rhonchi. Cardiac: Heart demonstrates an irregular rhythm and normal rate. Normal S1 and S2. No murmurs on examination. Pulses: The patient has palpable radial pulses bilaterally that are equal in intensity Extremities: There was no evidence of hypoperfusion. There is no cyanosis or clubbing. There is no edema. Skin: I did not appreciate any rashes on examination today. Results & Data Vital Signs (Past 12 Hours) Vital Signs Temp Pulse Pulse Resp BP Pulse Ox O2 Del Method 04/07/24 15:13 36.8 C 81 18 113/71 92 Room Air 04/07/24 15:03 78 04/07/24 11:16 36.3 C L 92 H 18 123/74 92 Room Air 04/07/24 08:59 87 04/07/24 07:58 36.6 C 88 20 122/68 92 Room Air Laboratory Results Abnormal Lab Results 04/06/24 04/06/24 04/06/24 11:48 14:42 17:50 Heparin Anti-Xa, Unfract Troponin I High Sens 236.3 H* Procalcitonin 0.45 TSH 0.203 L Free T4 1.04 Urine Color Dark Yellow Urine Appearance Cloudy A Urine pH 6.0 Ur Specific [place] 1.025 Urine Protein 2+ H Urine Glucose (UA) Negative Urine Ketones 1+ H Urine Blood 2+ H Urine Nitrite Positive A Urine Bilirubin Negative Urine Urobilinogen Negative Ur Leukocyte Esterase 3+ H Urine WBC (Auto) >50 H Urine RBC (Auto) 0-2 U Hyaline Cast (Auto) 0-2 U Epithel Cells (Auto) 0-2 Urine Bacteria (Auto) 2+ H Anaplasma Smear See Comment Babesia Smear See Comment Lyme Disease Screen Negative 04/06/24 04/07/24 04/07/24 21:03 04:21 09:12 Heparin Anti-Xa, Unfract 0.23 L 0.38 Troponin I High Sens 160.5 H* D 125.3 H* D 102.0 H* Procalcitonin TSH Free T4 Urine Color Urine Appearance Urine pH Ur Specific [place] Urine Protein Urine Glucose (UA) Urine Ketones Urine Blood Urine Nitrite Urine Bilirubin Urine Urobilinogen Ur Leukocyte Esterase Urine WBC (Auto) Urine RBC (Auto) U Hyaline Cast (Auto) U Epithel Cells (Auto) Urine Bacteria (Auto) Anaplasma Smear Babesia Smear Lyme Disease Screen Diagnostic Findings The time admission revealed cardiomegaly and interstitial markings. Echocardiogram 04/07/2024: Normal LV systolic function with ejection fraction of 60 65%. Mild LVH. Mild right atrial dilation. Normal right ventricular pressure. ECG Additional Comments: EKG obtained the time admission revealed atrial fibrillation rapid ventricular response. Right bundle branch block and left anterior fascicular block. PG Care Time/CCT Total # of Minutes Spent Total Time Spent with Patient: Total time spent is greater than 50% in coordination of care (as documented) at patient's floor/unit and/or counseling patient: Coding Level of Care Code 90803 INT INP/OBS CARE 3/75MIN Diagnoses Elevated troponin R79.89 Atrial fibrillation with RVR I48.91 Dyspnea on exertion R06.09
[2024-04-07] MEDS ORDERED: LEVALBUTEROL HCL 0.63 MG/3 ML NEB NEB PRN (17:07)
[2024-04-07] MEDS: FUROSEMIDE INJ 20 MG/2 ML VIAL IV ONE (17:23)
[2024-04-07 17:46] LABS: BUN Creatinine Ratio 37.1 (10-20); Calcium 8.6 mg/dl (8.6-10.3); Creatinine Clr Calc Pharmacy 44.2 ml/min; Est GFR (African American) 60.6 ml/min; Est GFR (Non-African American) 52.3 ml/min; Potassium 4.6 mmol/L (3.5-5.1)
[2024-04-07] MEDS: dilTIAZem HCl 60 MG TAB PO SCH (20:33)
[2024-04-07] MEDS: APIXABAN 2.5 MG TAB PO SCH (20:33)
[2024-04-08 06:45] LABS: Hematocrit (blood only) 35.6 % (42.0-52.0); Hemoglobin 12.4 g/dl (14.0-18.0); Mean Corpuscular Hgb Conc 34.8 g/dL (32.0-36.0); Mean Platelet Volume 11.2 fL (9.4-12.4); Platelet Count 176 K/uL (130-400); RDW Coefficient of Variation 13.8 % (11.5-14.5); RDW Standard Deviation 45.1 fL (36.4-46.3); White Blood Count 9.59 K/ul (4.8-10.8)
[2024-04-08 06:52] LABS: BUN Creatinine Ratio 35.5 (10-20); Calcium 7.9 mg/dl (8.6-10.3); Creatinine Clr Calc Pharmacy 44.2 ml/min; Est GFR (African American) 60.6 ml/min; Est GFR (Non-African American) 52.3 ml/min
[2024-04-08 07:47] LABS: ALC (manual) 3.07 K/uL (1.2-3.4); ANC (manual) 6.23 K/uL (1.4-6.5); Echinocytes 1+; Lymphocytes # (manual) 2.78 K/uL (1.2-3.4); Lymphocytes % (manual) 29 %; Monocytes # (manual) 0.29 K/uL (0.11-0.59); Monocytes % (manual) 3 %; Neutrophils # (manual) 6.23 K/uL (1.40-6.50); Neutrophils % (manual) 65 %; Plasma Cells # (manual) 0.29 K/uL (0-0); Plasma Cells % (manual) 3 %
--- NOTE | 2024-04-08 14:02 | Discharge Summary ---
Date of Service April 08, 2024 Admission HPI Per Admitting Provider Nabil is an 88-year-old male with a past medical history significant for BPH, gross hematuria, elevated blood pressure reading without diagnosis of hypertension, who presented to the [facility] emergency department via EMS on 04/06/2024 after being found to be in new onset A-fib with RVR at his PCPs office earlier today. The patient made a PCP appointment for today due to increased generalized weakness, multiple falls recently, and shortness of breath. On arrival to his PCPs office, he was noted to be in A-fib RVR with heart rate in the low 200s, he was noted to be hypoxic with SpO2 in the mid 80s on room air, and tachypneic. The patient was given 15 mg IV Cardizem and 100 mL NSS en route by EMS. On arrival to the ER the patient was noted to be mildly hypotensive at 96/67, tachycardic with heart rate in the 150s, tachypneic at 30, with a temperature of 37.8 C. He was noted to be stable on room air while in the ER. Labs were significant for a creatinine of 1.72 (baseline is near 1.0), BUN of 39, initial high-sensitivity troponin of 244, BNP of 664, and full respiratory BioFire negative. Chest x-ray was read as no acute cardiopulmonary findings, but did note interstitial thickening which is likely chronic and emphysema. Prior to admission the patient was given 125 mg IV methylprednisolone, a lev albuterol nebulizer treatment, a total of 1 L normal saline 10 mg IV diltiazem. He was eventually started on a diltiazem drip at 5 mg/h and started on a low-dose weight-based heparin drip without bolus. Patient sitting in bed in no acute distress at the time of exam, heart rates currently in the 120s. States he started to develop dyspnea on exertion, generalized weakness in the bilateral lower extremities, and generalized weakness on 04/04/2024. States that since 04/04 he has had 4 falls while standing. He denies any prodromal symptoms such as lightheadedness, dizziness, palpitations, chest pain, headache/vision changes prior to the falls. States that his bilateral knees gave out each time he fell. Denies hitting his head or losing consciousness on any of the falls. States that he would have to call his son each time to come help him up. Made an appointment with his PCP today due to these ongoing symptoms. Denies new paresthesias, unilateral weakness in any of the extremities, new changes in vision, hearing, taste, smell. Denies recent chest pain, productive cough/hemoptysis, ABD pain, nausea/vomiting, dysuria, hematuria, melena, bloody BMs, lower extremity swelling. When asked, he states that he has not been eating well recently due to decreased appetite but has been trying to drink fluids to stay hydrated. Has an approximately 20 to 25-year smoking history, but quit smoking in his 40s to 50s. Denies recent alcohol use. Only complaint at this time is feeling generally fatigued. We discussed CODE STATUS, he wishes to be a full code and for his family to make medical decisions for him if he cannot make them himself. Please refer to Dr. Marino's attestation for any changes to the treatment plan Principal Diagnosis afib with RVR Discharge Exam head atraumatic neck supple chest CTA b/l heart irregularly irregular abdomen soft nontender nondistended, bowel sounds Extremities no clubbing no cyanosis, pulses diminished neuro alert awake oriented x 3, no focal deficit Discharge Data Allergies Allergy/AdvReac Type Severity Reaction Status Date / Time latex Allergy Intermediate BLISTERS Verified 04/06/24 10:49 Consultations 04/06/24 13:44 ED Decision to Admit Stat 04/06/24 15:00 Consult Cardiology Routine Ordered Studies 04/06/24 14:46 US Renal Bladder [US renal/blad retro comp] Urgent Hospital Course (1) Atrial fibrillation with RVR: Admit to the PCU on telemetry Currently with heart rate in the 110s to 120s, but has been hemodynamically stable and now stable on room air Currently on diltiazem drip running at 5 mg/h Was sent to the ER from his PCPs office earlier today after he was found to be in new onset atrial fibrillation with heart rates in the low 200s At this time the exact etiology of his atrial fibrillation is unknown, electrolytes have been stable, he is not volume overloaded to suggest going into CHF exacerbation prior to A-fib, he examines as dehydrated and is also noted to have an KE so high suspicion that dehydration is playing a role Patient was initially hypoxic at his PCPs office and mildly hypotension on arrival to the ED > Patient now stable on room air and hemodynamically stable with better rate control and initial IV fluid resuscitation, low suspicion for PE at this time as he is without signs of DVT in the bilateral lower extremities and denies pleuritic chest pain. Suspect his hypoxia was due to increased heart rate Temperature on arrival was 37.8 C, he is without leukocytosis, chest x-ray is negative for pneumonia, no signs of skin infection, patient has denied GI symptoms and urinary symptoms Will continue infectious workup with UA and reflex culture if needed, Pro-Willard, and tickborne panel as his lymphocyte count is decreased Will also add on a TSH with reflex free T4 if needed for normal A-fib workup Patient received a total of 1 L normal saline in the ED, still appears dehydrated, will order LR to run at 80 mL/h x 1 bag for now as he is without signs of volume overload Patient does not have a history of major bleeding, is in agreement with heparin drip at this time, will need to be transition to oral anticoagulation prior to discharge Will continue diltiazem drip for now and consult cardiology Will obtain echocardiogram on admission Heparin drip for DVT prophylaxis Heart healthy diet with 2 g sodium restriction AM CBC, CMP, mag, PT/INR cardiology consult Eliquis po , Cardizem po stable for discharge (2) Falls: Patient has had 4 falls from standing over the past 48 hours Patient explains that his bilateral lower extremities have been symmetrically weak and have been giving out on him when he is trying to ambulate Patient denies new neurologic symptoms, did not hit his head or lose consciousness with any of the falls No focal neurologic exam findings Suspect his weakness is due to dehydration and possibly also related to his A- fib RVR since he cannot feel himself in A-fib RVR at this time, not sure how long he has been in it Will continue supportive care and infectious workup Fall precautions/PT/OT consults (3) Elevated troponin: Initial high-sensitivity troponin is elevated at 244, patient denies chest pain No acute ST segment or T wave changes on EKG Suspect this is due to demand from A-fib RVR and dehydration 2-hour high-sensitivity troponin is in process we will continue to trend overnight Continue to monitor on telemetry, will obtain echocardiogram for further assessment ECHO EF is normal (4) KE (acute kidney injury): Creatinine is elevated today at 1.76, baseline is near 1.0 Patient appears dehydrated on exam, KE is likely prerenal however, we will obtain bladder scan and renal ultrasound to monitor for obstruction Bladder scan every shift, as needed straight cath orders placed for postvoid residual of 350 cc or greater Will continue with light IV hydration on admission Avoid nephrotoxic agents Monitor daily renal function and electrolytes - ke resolved , renal US enlarged prostate (5) Generalized weakness: See falls (6) UTI (urinary tract infection): IV Rocephin, follow up on urine culture will d/c with po Keflex Plan The patient was discussed with Dr. Marino at the time of the admission Total Time Total Time Spent Total Time Spent (In Minutes): 45 Discharge Plan Discharge Items Patient Disposition: Home - Self-Care Reason For Visit: NEW ONSET AFIB RVR, ELEVATED TROP, GENERALIZED WEA Discharge Diagnosis: Afib with RVR Activity: Resume your previous activity Non-emergency contact: Primary Care Provider and Water Mangle Tender Call non-emergency contact if: you have any medication questions and your symptoms worsen Follow-up/Referrals: Cayla Feldman CRNP [Primary Care Provider] - 04/18/24 10:30 am Jamshid Moe MD [Physician] - (Dr. Moe's office will reach out to you to schedule your appointment.) Diet: Heart Healthy Addtl Attending Provider Instructions: follow up with Dr Moe in 1-2 weeks Pending Studies at Discharge: No Stand-Alone Forms: My [facility] [employer], Smoking Cessation Medications and DC Order Prescriptions: New Eliquis 2.5 mg Tablet 5 mg PO BID Qty: 60 0RF diltiazem HCl [Cardizem CD] 240 mg capsule,extended release 24hr 240 mg PO DAILY Qty: 30 0RF cephalexin 250 mg capsule 250 mg PO Q8H 7 Days Qty: 21 0RF Continued multivitamin Tablet 1 tab PO HS dutasteride 0.5 mg capsule 0.5 mg PO HS Discharge Orders: Discharge Order (Routine); Ordered 04/08/24 Ordered By: Michelle Capps/Other Patient Handouts: AFib Admission Data Admit Date/Time: 04/06/24 14:37 Attending Provider: Michelle Fonseca Admit Provider: Arpit Marino Primary Care Provider: Cayla Feldman Other Providers: Arpit Marino; Jamshid Moe Other Interventions: Discharge Summary Assessment (RN) Last Done: 04/08/24 11:22 Coding Level of Care Code 61420 INP/OBS DISCH >30 MIN Diagnoses Atrial fibrillation with RVR I48.91 Falls W19.XXXA Elevated troponin R79.89 KE (acute kidney injury) N17.9 Generalized weakness R53.1 UTI (urinary tract infection) N39.0
[2024-04-10 20:12] LABS: Babesia microti DNA Not Detected (Not Detected)
== END 2024-04-08 13:02 | disposition home or self-care (01) | DRG 309 ==
LOC: ED 11:38 → EDINP 14:37 → SUATTDRO 14:37 → 2S 17:41